=== PATIENT | male | born 1950 | race Caucasian/White ===

== ENCOUNTER 2016-09-30 06:35 | Day surgery (SDC) | payer OTHER ==
[2016-09-23 13:39] LABS: URINE MICRO REVIEW NEEDED? NO; URINE SOURCE CLEAN CATCH
[2016-09-23 13:39] LABS: MANUAL DIFF NEEDED? NO
[2016-09-23 13:53] LABS: BASO% 0.6 % (0.0-0.8); EOS# 0.31 X1000 (0.0-0.7); HEMATOCRIT 41.8 % (42.0-52.0); HEMOGLOBIN 13.9 g/dL (14.0-18.0); IMM GRAN# 0.03 X1000 (0.0-0.04); IMM GRAN% 0.3 % (0.0-0.5); LYMPH# 3.33 X1000 (1.2-3.4); LYMPH% 32.1 % (20.5-51.1); MCH 31.7 PG (27-31); MCHC 33.3 g/dL (33-37); MCV 95.4 FL (81-99); MONO# 0.83 X1000 (0.11-0.59); MPV 10.4 FL (7.4-10.4); PLT 255 X1000 (130-400); RBC 4.38 XMIL (4.7-6.1)
[2016-09-23 13:56] LABS: BILIRUBIN URINE NEGATIVE (NEGATIVE); BLOOD URINE NEGATIVE (NEGATIVE); COLOR STRAW; GLUCOSE URINE NEGATIVE (NEGATIVE); LEUKOCYTES URINE NEGATIVE (NEGATIVE); NITRITE URINE NEGATIVE (NEGATIVE); PROTEIN URINE NEGATIVE (NEGATIVE); TURBIDITY URINE CLEAR (CLEAR); UROBILINOGEN URINE NORMAL (NORMAL)
[2016-09-23 13:57] LABS: UR EPITHELIAL CELLS <10 /HPF (<10); URINE BACTERIA NEGATIVE /HPF; URINE RBC <10 /HPF (<10); URINE WBC <10 /HPF (<10)
--- NOTE | 2016-09-23 13:57 | EKG Report ---
Test Performed on : 09/23/2016 1:28:01 PM Test Reason : PAT Blood Pressure : / mmHG Vent. Rate : 071 BPM Atrial Rate : 071 BPM P-R Int : 148 ms QRS Dur : 096 ms QT Int : 376 ms P-R-T Axes : 037 053 057 degrees QTc Int : 408 ms Normal sinus rhythm. Normal ECG No previous ECGs available Confirmed by Travis ALFORD, Marco A Maldonado ([id number]) on 09/25/2016 5:20:14 PM
[2016-09-23 14:11] LABS: ALBUMIN 3.9 g/dL (3.5-5.0); CALCIUM 9.5 mg/dL (8.8-10.2); POTASSIUM 4.3 mmol/L (3.5-5.1); TOTAL BILIRUBIN 0.52 mg/dL (0.20-1.00); TOTAL PROTEIN 7.3 g/dL (6.3-8.3)
--- NOTE | 2016-09-23 15:08 | Diag Imaging Result Document ---
PROCEDURE NAME: CHEST-2 VIEWS - 09/23/2016 CHEST X-RAY TWO VIEWS: COMPARISON: None. FINDINGS: The lungs are normally expanded and clear. Heart size and mediastinal contours are normal. No pneumothorax or pleural effusion. IMPRESSION: Negative exam.
[2016-09-30] MEDS ORDERED: KEFZOL 1 GM/D5W 50 ML ONE (07:24)
[2016-09-30] MEDS ORDERED: MARCAINE 0.25% PF/EPI 1:200,000 ONE (07:42)
[2016-09-30] MEDS ORDERED: LR 1,000 ML ONE (07:56)
[2016-09-30] MEDS ORDERED: XYLOCAINE 1% ONE (08:08)
[2016-09-30] MEDS ORDERED: VERSED ONE (08:39)
[2016-09-30] MEDS ORDERED: DIPRIVAN 1% ONE (08:41)
[2016-09-30 09:03] VITALS: BP 149/85
[2016-09-30] MEDS ORDERED: XYLOCAINE-MPF 2% ONE (09:18)
--- NOTE | 2016-09-30 09:50 | OPERATIVE NOTE ---
PROCEDURE DATE: 09/30/2016 PREOPERATIVE DIAGNOSIS: Probable small squamous lesion of the scalp. POSTOPERATIVE DIAGNOSIS: Probable small squamous lesion of the scalp. PROCEDURE: Excision. SURGEON: Pepe Escobar MD DESCRIPTION OF PROCEDURE: Patient was brought to the operating room, after satisfactory induction of IV and MAC anesthesia, his scalp was prepped and draped in the appropriate manner. The lesion on the dome of his scalp was ellipsed out. Hemostasis was obtained by electrocautery, 5 mL of Marcaine and Xylocaine with epinephrine was injected into the galea. The skin was closed with stainless steel clips and 3-0 nylon. Sterile dressing was applied. He was awakened in the operating room and transferred to recovery. ESTIMATED BLOOD LOSS: Less than 5 mL.
== END 2016-09-30 09:03 | disposition home or self-care (01) ==
LOC: PAT 06:35
PROVIDERS: ATTEND Surgery
DX: D23.4 Other benign neoplasm of skin of scalp and neck (principal); I25.10 Atherosclerotic heart disease of native coronary artery without angina pectoris; I10 Essential (primary) hypertension; E11.9 Type 2 diabetes mellitus without complications
CPT/HCPCS: 71020; 80053; 81001; 82948; 85025; 88305; 88313; 93005; 93010; J0690; J2250; J7120